=== PATIENT | male | born 1960 | race Caucasian/White ===

== ENCOUNTER 2018-12-04 05:21 | Inpatient (IN) | payer OTHER, SELFPAY ==
--- NOTE | 2018-11-28 15:02 | HP.PCM_ITS ---
History and Physical Date of Admission: 12/04/18 HISTORY AND PHYSICAL - COLON RESECTION FOR?CECAL SESSILE MASS, LIKELY COLON CANCER ? Alex Carpenter 1960 November 28, 2018 ? REFERRING PHYSICIAN: ??Reginaldo Tejada MD ? CHIEF COMPLAINT:??Anemia ? HPI: The patient is a 57 year old male with a finding of anemia. ?The patient had no real complaints but went to donate blood and was found to be anemic. ?He was referred to Dr. Reginaldo Tejada. ?The patient underwent colonoscopy and upper endoscopy on November 20, 2018 which demonstrated 2 smaller polyps and then a sessile polyp in the ascending colon cecal region this was biopsied and was felt to be unresectable. ?Dr. Tejada contacted me and felt this was likely going to return as a superficial carcinoma but in the event required surgical intervention. ??Pathology from [facility] is currently pending. ? The patient is being seen by me today at the request of ?for my opinion and advice regarding unresectable polyp/carcinoma of the right colon. ? PAST MEDICAL HISTORY PAST MEDICAL HISTORY Diagnosis Date ? Anemia ? ? ? PAST SURGICAL HISTORY PAST SURGICAL HISTORY Procedure Laterality Date ? APPENDECTOMY ? ? ? COLONOSCOPY ? 11/20/2018 ? LAMINECTOMY,>2 SGMT,LUMBAR ? 2011 ? ? CURRENT MEDICATIONS ? Current Outpatient Medications: ferrous sulfate 325 mg (65 mg iron) tablet TAKE 1 TABLET BY MOUTH THREE TIMES A DAY EVERY OTHER DAY Disp: Rfl: 11 neomycin 500 mg tablet Take 2 tablets by mouth four times daily. 2 TABLETS AT 6, 8 ,AND 10 PM Disp: 6 tablet Rfl: 0 metroNIDAZOLE (FLAGYL) 500 mg tablet Take 1 tablet by mouth three times daily. 2 TABLETS AT 6, 8, AND 10 PM Disp: 6 tablet Rfl: 0 Sodium,Potassium,&Mag Sulfates (SUPREP BOWEL PREP KIT) 17.5-3.13-1.6 gram solr Take 1 Bottle by mouth one time only for 1 dose. Disp: 1 Bottle Rfl: 0 ? No current facility-administered medications for this visit.? ? ALLERGIES:?Demerol [Meperidine (Pf)] ? PERSONAL HISTORY:? SOCIAL HISTORY Social History ??Socioeconomic History ?Marital status: ?Spouse name: Not on file ?Number of children: Not on file ?Years of education: Not on file ?Highest education level: Not on file ??Social Needs ?Financial resource strain: Not on file ?Food insecurity - worry: Not on file ?Food insecurity - inability: Not on file ?Transportation needs - medical: Not on file ?Transportation needs - non-medical: Not on file ??Occupational History ?Not on file ??Tobacco Use ?Smoking status: Never Smoker ?Smokeless tobacco: Never Used ??Substance and Sexual Activity ?Alcohol use: Yes ?Drug use: Not on file ?Sexual activity: Not on file ??Other Topics ?Concerns: ?Not on file ??Social History Narrative ?Not on file ? FAMILY HISTORY:? FAMILY HISTORY FAMILY HISTORY Problem Relation Age of Onset ? DVT Father ? ? COPD Mother ? ? REVIEW OF SYMPTOMS: ??The review of systems data was entered by the nurse and reviewed by me ? Nursing Notes: Marvel Rand ?11/28/2018 ?1:34 PM ?Signed REVIEW OF SYSTEMS: ?General:???The patient denies fatigue, denies weight loss, denies weight gain, denies feeling hot, and denies feelings of cold. ?Eyes: ?The patient denies glaucoma, denies eye injury/surgery, does not wear glasses or contacts. ?Ear/Nose/Throat: ?The patient denies allergies, denies hayfever, denies ear infections, and denies bloody noses. ?Cardiovascular: ?The patient denies chest pain, denies heart disease, denies high blood pressure,denies cardiac stent, denies prior heart attack, denies irregular heart beat, denies high cholesterol, ?denies poor circulation, denies heart failure, other cardiac issues, denies claudication, denies cold feet, denies peripheral arterial stent. ?Respiratory: ?The patient denies tuberculosis, denies pneumonia, denies frequent cough, denies pulmonary embolism, denies shortness of breath, and denies coughing up blood. ?Gastrointestinal: ?The patient denies difficulty swallowing, denies acid reflux, denies ulcers, denies vomiting, denies jaundice/hepatitis, denies gallbladder problems, denies black or tarry stools, denies hemorrhoids, denies bleeding from rectum, denies diverticulitis, denies constipation, denies d iarrhea, denies loss of stool control, and denies hernias. ?Kidney/Bladder: ?The patient denies kidney stones, denies urine infections, and denies bloody urine. ?Skin: ?The patient denies a history of skin cancer, denies bleeding/changing moles, and denies a history of skin rash. ?Neurologic: ?The patient denies a history of epilepsy/convulsions, denies headaches, denies head/spinal injuries, and denies stroke/TIA. ?Psychiatric: ?The patient denies psychiatric medications, denies depression, and denies voices, denies substance abuse. ?Endocrine: ?The patient denies thyroid disorders, denies diabetes, and denies hormonal problems. ?Hematologic: ?The patient denies a history of bruising, denies bleeding, and denies anemia, denies blood clots. ?Infections: ?The patient denies a history of measles and mumps, denies rheumatic fever, and denies sexually transmitted diseases. ?Musculoskeletal: ?The patient NOTES back pain/injury, denies back problems, denies sciatica, denies knee/foot trouble, denies arthritis, or denies gout. ? ? When was patient's last Mammogram screening? N/A ? ?Last Colonoscopy: ? ? Marvel Rand ? PHYSICAL EXAMINATION: ? General: ?The patient is 57 year old male, well nourished, well hydrated in no acute distress. ?The patient is oriented to time, place, and person. ? VITALS:?BP 162/78 ? Pulse 64 ? Resp 22 ? Ht 180.3 cm (5' 11) ? Wt 116.1 kg (256 lb) ? BMI 35.70 kg/m? ?Body mass index is 35.7 kg/m?.? ? HEENT: ?Normal cephalic, ataumatic, pupils are equally round, sclera are anicteric, mucous membranes are moist, oropharynx is clear. ?Neck has no masses, asymmetry or lymphadenopathy. ?Thyroid is unremarkable. ? Respiratory: ?Clear to auscultation and percussion. ?Normal respiratory excursion and pattern. ? Cardiac: ?Examination is regular rate and rhythm. ? Abdominal exam: ?Soft, nontender, ?with no palpable masses. ?No hepatosplenomegaly. ?No palpable hernias. ? Rectal exam: ?exam deferred ? Extremities: ?no clubbing, cyanosis or edema. ?No adenopathy. ? LABORATORY VALUES: As Noted ? RADIOLOGIC STUDIES: ?As Noted ? Assessment ? IMPRESSION: Cecal polyp versus cancer ? PLAN: ? We extensively discussed the diagnosis and discussed the surgical options. ??The patient has elected to undergo colon resection ? I plan to perform a?Laparoscopic colectomy partial right hemicolectomy- 70805- 142. ?The planned surgical procedure was discussed extensively with the patient. ?The risks, benefits, anticipated outcomes and possible complications and alternatives were discussed. ?My staff has also explained the procedure in understandable terms and the patient was given the option to take printed material concerning the planned procedure. ?The patient had the opportunity to ask questions concerning the planned procedure. ?The patient freely consents to the planned procedure. ?? ? I will plan for?outpatient bowel preparation including mechanical and antibiotic preparation including Neomycin and Flagyl 1gm each at 6,8, and 10pm the night before surgery. ? Anticipated Surgical Procedure/ CPT Code:?Laparoscopic colectomy partial right hemicolectomy- 15947-474 ? Anticipated Anesthetic:?General ? Patient weight:??Blood pressure 162/78, pulse 64, resp. rate 22, height 180.3 cm (5' 11), weight 116.1 kg (256 lb).?BMI: ?Body mass index is 35.7 kg/m?. ? Planned antibiotic:?Cefotetan?2gm IVPB juvenile correctional officer to OR ? SCDs needed -?Yes ? Associate Veterinarian Needed -?Yes ?? ? Diagnoses:?(D12.6) Adenomatous polyp of colon, unspecified part of colon ?(primary encounter diagnosis) (C18.2) Colon cancer, ascending (HCC) ? My findings have been communicated to ?via shared medical record. ?This note will be forwarded to Dr. Jigar Cook MD. ? Return to Clinic: The patient is instructed to follow-up with me?1 week post operatively. ?
[2018-12-01 08:12] VITALS: BP 145/84; PULSE 63; RESP 16; TEMP 36.7; O2SAT 96; BMI 35.6
--- NOTE | 2018-12-01 08:46 | SDCEKG_ITS ---
Test Reason : Blood Pressure : / mmHG Vent. Rate : 060 BPM Atrial Rate : 060 BPM P-R Int : 184 ms QRS Dur : 102 ms QT Int : 414 ms P-R-T Axes : 059 079 061 degrees QTc Int : 414 ms Normal sinus rhythm Normal ECG Confirmed by SHRUTHI GUTIÉRREZ, NUZHAT ([id number]), newspaper photo editor ARAVIND MCBRIDE ([id number]) on 12/04/2018 10:36:07 AM Referred By: Luis Andrade Confirmed By:NUZHAT HAWKINS MD
[2018-12-01 09:43] LABS: Absolute Lymphocyte Count 1.23 X10^3/ul (0.83-4.51); Absolute Neutrophil Count 6.2 X10^3/uL (2.0-7.7); Basophil# 0.04 X10^3/uL; Basophil% 0.4 % (0-1); Eosinophil# 0.47 X10^3/uL; Eosinophils% 5.1 % (0-5); Hematocrit 33.3 % (40-54); Hemoglobin 9.8 g/dl (13.0-16.5); Lymphocyte # 1.23 X10^3/ul (4.0); Lymphocyte % 13.5 % (19-41); Mean Corp Hgb Conc 29.4 g/gl (32-36); Mean Corpuscular Hgb 23.6 pg (27.0-32.0); Mean Corpuscular Volume 80.2 fL (80-94); Mean Platelet Vol. 8.8 fl (6.2-12.0); Neutrophil # 6.21 X10^3/uL (2.7-7.7); Neutrophil % 68.1 % (47-70); POSITIVE COUNT NO; POSITIVE DIFFERENTIAL NO; POSITIVE MORPHOLOGY NO; Platelet Count 350 K/mm3 (150-450); RBC Distribution Width CV 16.2 % (11.6-14.6); RBC Distribution Width SD 47.3 fl (35.1-43.9); Red Blood Count 4.15 M/mm3 (4.6-6.2); White Blood Count 9.1 K/mm3 (4.4-11.0)
[2018-12-01 10:00] LABS: Iron 24 ug/dL (65-175)
[2018-12-04] VITALS (13 sets, daily range): BP systolic 93–133; BP diastolic 53–78; PULSE 47–68; RESP 14–18; TEMP 36.4–37.1; O2SAT 92–100; BMI 35.6
--- NOTE | 2018-12-04 | COL._PTH ---
PATIENT: RADHA LEVIN LOC: MS2 U#:[id number] AGE/SX: 57/M [place] [facility] [place] RE12/04/[address]: Dr. Luis Andrade MD : 1960 BED: 1 DIS: 12/06/2018 SPEC #: [id number] RECD: 12/04/18 14:19 STATUS: ROSALIND REAyden #: [id number] MIKHAIL: 12/04/18 00:[address]: Luis Andrade DEPT: SURGICAL PATHOLOGY RECD BY: Everette Maki ENTERED: 12/04/18 14:19 SP TYPE: COLON OTHR DR: Elzbieta Montejo, OUTPATIENT SERVICES DIRECTOR-C Tissues: Colon, NOS Procedures: Surgery Specimen Level HEADER OPERATION: ERAS, laparoscopic hemicolectomy PRE-OP DIAGNOSIS: Colon cancer TISSUE SUBMITTED: Right colon MICROSCOPIC DIAGNOSIS Right colon, right hemicolectomy: Invasive adenocarcinoma. See cancer checklist below. AM:franchesca 12/08/18 COMMENT COLON CANCER SUMMARY: Specimen - right colon Procedure - right hemicolectomy Tumor site - cecum Tumor size - 10.5 x 8 x 1.6 cm Macroscopic tumor perforation - not identified Histologic type - adenocarcinoma Histologic grade - high grade (moderate to poorly differentiated) Microscopic tumor extension - tumor invades through muscularis propria into subserosal adipose tissue. Margins: Proximal margin - free of carcinoma Distal margin - free of carcinoma Circumferential margin - free of carcinoma Closest tumor margin - distal margin (9.5 cm) Treatment effect - unknown Lymph-Vascular invasion - not identified Perineural invasion - not identified Tumor deposits - not identified Lymph nodes: Number of lymph nodes examined - 27 Number of lymph nodes involved - 1 Additional pathologic findings - tumor adenomas (2) Ancillary studies: Reported separately. See microsatellite instability study by IHC ([id number]) for complete details. PATHOLOGIC STAGE: pT3 N1a Mx The above summary is in compliance with College of [employer] (CAP) Cancer Protocols Checklist and [place] Joint Committee on Cancer (AJCC), Staging Manual, 8th Ed. Case has been reviewed in consultation with Dr. Nair who concurs with the above diagnosis. IDC:SJ MICROSCOPIC DESCRIPTION Slides are reviewed. GROSS DESCRIPTION Received in fixative is one container labeled with the patient's name and designated right colon. The specimen consists of a 15 cm segment of large bowel with attached 12.5 cm segment of small bowel. An appendix is not present. In the middle of the cecum and involving the ileocecal valve is a firm, jalloh-white apple-core lesion involving 100% of the circumference of the bowel and measuring 10.5 x 8 x 1.6 cm. The mass is located 9.5 cm from the closest (distal) margin of resection and 10 cm from the proximal margin of resection. The serosa in the area of mass is inked in blue ink. No gross perforation is identified. The pericolic soft tissue contains a number of nodules resembling lymph nodes. Also present free in the container are four irregular fragments of jalloh mucosa ranging in size from 2 to 2.5 cm. Located 5 cm and 8 cm distal to the mass are two jalloh-pink polyps ranging in size from 0.5 to 0.4 cm. Serial sections of the mass reveal extension of mass through the bowel wall. The serosa in area of mass is inked in blue ink. Sections are submitted as follows: 1 - proximal and distal mucosal margins, 2??help desk representative section of fragments of bowel free in container, 3 - mucosal polyps (most proximal inked), 48 - tumor, 9 - multiple lymph nodes, 10 - one lymph node, 11??one lymph node, 12 - one lymph node sectioned, 13??one lymph node, 14 - multiple lymph nodes, 15 - one lymph node, sectioned, 16 - one lymph node serially sectioned, 17 - one lymph node sectioned, 18 - one lymph node sectioned, 19 - one lymph node sectioned, 20 - one lymph node bisected, 21 - one lymph node bisected, 22??multiple lymph nodes. / AM:franchesca 12/05/18 TC:0 CPT: 10715
--- NOTE | 2018-12-04 | IMM_PTH ---
PATIENT: RADHA LEVIN LOC: MS2 U#:[id number] AGE/SX: 57/M [place] [facility] [place] RE12/04/[address]: Dr. Luis Andrade MD : 1960 BED: 1 DIS: 12/06/2018 SPEC #: [id number] RECD: 12/08/18 10:37 STATUS: ROSALIND REQ #: [id number] MIKHAIL: 12/04/18 00:[address]: Luis Andrade DEPT: IMMUNOHISTOCHEMISTRY RECD BY: Jeri Sampson ENTERED: 12/08/18 10:38 SP TYPE: IMMUNO OTHR DR: Elzbieta Montejo, AUTO DEALERSHIP PORTER-C Tissues: Right colon Procedures: MSH2 (add) MLH-1 (add) MSH6 (add) Anti-PMS2 (add) NUNO-2 (add) HER2 NAVNEET (add) P53 (add) KI-67 (initial) PHYSICIAN & INSTITUTION [place] [id number] SPECIMEN INFORMATION: Tissue Source: Right colon Clinical Info: Colon cancer Specimen Number: [id number] #7 CPT code: 59045, 59562 x7 METHODOLOGY: Deparaffinized sections of prefer/formalin-fixed tissue or PAP/DQ stained slides are incubated with monoclonal/polyclonal antibodies/oligonucleotide probes. Localization is made via biotin free immunoperoxidase method. Appropriate controls are performed and reacted as expected. Results on target cell population are indicated in the following table: RESULTS: ANTIBODY / CLONE RESULT Block 7 Ki-67 (30-9) positive, high P53 (DO-7) positive, 2% NUNO-2 (SP21) positive MLH-1 (M1) negative MSH2 (25D12) positive MSH6 (44) positive PMS2 (ECR1090) negative Her-2neu (CB11) negative These tests were developed and their performance characteristics determined by [facility]. They may not have been cleared or approved by the U.S. Food and Drug Administration. The FDA has determined that such clearance or approval is not necessary. INTERPRETATION: Right colon, hemicolectomy: Invasive adenocarcinoma. Result of Microsatellite Instability Study: Positive (loss of mismatch protein; microsatellite instability detected). Complete loss of MLH1 and PMS2. SJ:franchesca 12/12/18 Case has been reviewed in consultation with Dr. Natarajan who concurs with the above diagnosis. IDC:AM
[2018-12-04] MEDS: Gabapentin 600 MG Tablet PO (06:11)
[2018-12-04] MEDS: Acetaminophen 500 MG Tablet 1000 MG PO ×3 (06:11→23:21)
[2018-12-04 06:25] LABS: Bedside Glucose 78 mg/dL (70-110)
[2018-12-04] MEDS: Lactated Ringers 1,000 ML 40 ML IV (06:27)
[2018-12-04] MEDS: Magnesium Sulfate 4gm/100mL 4 GM/100 ML IV.SOLN. IV (06:28)
[2018-12-04] MEDS: BUPIVACAINE LIPOSOME/PF 20 ML VIAL OPERA.SITE (10:53)
[2018-12-04] MEDS: Bupivacaine 0.25% 30 ML Vial (10:53)
--- NOTE | 2018-12-04 11:04 | PCM.OPRPT ---
Report of Operation Date of Procedure: 12/04/18 Pre-Operative Diagnosis: right colon cancer Post-Operative Diagnosis: bulky right colon cancer Surgery/Procedure Performed:: laparoscopic right hemicolectomy outdoor adventure guides: Keri Verma Type of Anesthesia:: General Anesthesiologist: Jerman Rich - ASA2 Specimen's removed: right colon Drains: none Estimated Blood Loss (mL): 100 Fluids Replaced: 2000 Description of Procedure: The patient was brought to the operating suite. Sign in was performed verifying patient, site, procedure, position, and DVT prophylaxis with SCDs. Patient 2 g of cefotetan. Preoperative bowel prep of mechanical and antibiotic comprised of GoLYTELY and then neomycin and Flagyl 1 g 3 doses evening before was given Following induction of general anesthetic. The patient?s abdomen was prepped and draped in the usual fashion. Timeout was performed verifying patient, site, position. Local anesthetic was injected above the level of the umbilicus. Incision made and dissection carried down to the fascia. 2 stay sutures were placed. Incision made in the fascia, the peritoneum entered under direct visualization. A 10 mm Smith trocar was inserted and secured with the stay sutures. Pneumoperitoneum to 15 mmHg was insufflated. Visual inspection revealed adhesions of a loop of small bowel and omentum to the anterior abdominal wall and also then omentum adherent to this loop of small bowel. There was also found to be a big bulky tumor in the cecum. The liver and other visualized abdominal structures appeared unremarkable. 2 5mm ports were placed in the standard midline position. a third 5 mm port was placed in the low midline later. Mobilization the avascular plane was undertaken from the base of the cecum up and around the hepatic flexure. Division of the lesser sac from the midline to the hepatic flexure was undertaken. When this was fully mobilized. The duodenum was visualized from the right flank region. Next, the terminal ileum area was brought up and a cleavage point noted in the mesentery. Harmonic Scalpel was used to create a window in the terminal ileal mesentery with an additional length of terminal ileal mesentery taken given the size of the cecal mass and division was taken down to the ileocolic root. Next the transverse colon was grasped and the vasculature coming from the middle colic vessel was identified. A window was made in the bare area proximal to the middle colic vessels just overlying the duodenal sweep. This was also fully divided. Dissection was then carried out at the ileal colic vessel root. The artery and vein were identified and doubly clipped proximally and doubly clipped distally with Hem-o-geovani clips. With full dissection of the mesentery and full mobilization the colon, the supraumbilical incision was extended and a wound protector placed. The terminal ileum and cecum ascending colon part of the transverse colon were delivered through the wound protector. Complete division of the mesentery to the bowel was undertaken at both sites. The bowel was transected with an intestinal load echelon stapler. On this a functional stapled end-to-end anastomosis was performed between the ileum and transverse colon with an echelon stapler. The staple line was checked for hemostasis and following this the anastomosis closed with a TA stapler creating a wide triangle opening that was easily palpable. A 3-0 silk suture was used to take tension off the apex of the staple line and Betadine painted on the TA staple line. At this point, the specimen was opened on the back table. There was noted to be tumor in the expected location. Gown and gloves were changed. The site had clean towels placed and New instruments were used for fascial closure. The umbilical fascial defect was closed with a running 0 PDS suture. Penumoperitenum was reestablished. There was good anatomic positioning of the small bowel. There was good hemostasis along the incisions. A lateral rectus abdominus block was performed with Exparal diluted with bupivacaine to 50cc total volume. Additional mixture was injected in the 5mm port sites and lasts some saved for the skin injection Pneumoperitoneum was reestablished. The 5mm ports were removed under direct visualization with no signs of bleeding. Pneumoperitoneum was released. Subcutaneous fat reapproximated with interrupted 3-0 Vicryl sutures. Skin was closed with interrupted 4-0 Monocryl subcuticular sutures. Exparal diluted with bupivacaine was injected into the skin. Steri-Strips and bandages were applied. The patient was brought to recovery room in stable condition. - Admit VTE Documentation VTE Present on Admission: No VTE Mechan Device Prophylaxis: SCD's VTE Pharm Prophylaxis ordered?: Yes
[2018-12-04 12:01] LABS: Carcinoembryonic Antigen 1.5 ng/mL (0.0-4.7)
[2018-12-04] MEDS: Ketorolac 15 MG/ML Vial IV ×3 (13:47→23:22)
--- NOTE | 2018-12-04 15:19 | CASEMGMT ---
RN RASHEED AUTOMOBILE WRECKER CM to room to meet with patient for initial transition planning/care coordination assessment. RN RASHEED introduced self and role at [facility]. Pt voices understanding and consents to assessment at this time. Pt resting in bed in no distress at this time. Pt is A/O at this time and answers all questions appropriately. Care providers, pharmacy, and demographics verified/updated at this time. PCP: Elzbieta Montejo Specialists: Denies Preferred Pharmacy: [facility] Retail Insurance: [employer] Prescription Benefit: Yes Living Will/HPOA: Pt does not currently have LW/HCPOA and declines info at this time. Pt made aware that he can contact as an out-pt and make appt in the future if he decides he would like to talk with someone about this or would like to utilize [facility] social work for advanced directive completion. LNOK: , son Living Arrangements: Lives with and son who is in college in 2-story home. Denies difficulty w/stairs. Independent. Transportation: Pt states drives self and states no transportation concerns at this time. DME: CPAP that he got thru [facility]. States he is pretty sure he transferred over to [place]. HHC/SNF: No history of either. Denies needs and no needs identified. Pt wishes to return home and states has no concerns with going home at time of discharge. Pt states does not smoke or drink ETOH. CM to follow for any discharge planning/needs. Pt voices no further concerns/needs at this time. Advised pt to ask for CM if any further questions/concerns/needs arise. Voices understanding. PLAN: Home Sharlene POPE RN, CM
[2018-12-04] MEDS: Ensure Clear 120 ML Liquid PO ×2 (19:05→21:05)
[2018-12-04] MEDS: Docusate Sodium 100 MG Capsule PO (21:05)
[2018-12-04] MEDS: 0.9% NaCl Peripheral Flush Adult/Peds IV (23:22)
[2018-12-05] MEDS: Lactated Ringers 1,000 ML 40 ML IV (01:58)
[2018-12-05 05:29] VITALS: BP 121/84; PULSE 64; RESP 16; TEMP 36.6; O2SAT 97
[2018-12-05] MEDS: Ketorolac 15 MG/ML Vial IV ×3 (05:37→18:45)
[2018-12-05] MEDS: Acetaminophen 500 MG Tablet 1000 MG PO ×4 (05:37→23:39)
[2018-12-05] MEDS: 0.9% NaCl Peripheral Flush Adult/Peds IV ×3 (05:38→23:39)
[2018-12-05 06:02] LABS: Hematocrit 30.2 % (40-54); Hemoglobin 8.8 g/dl (13.0-16.5); Mean Corp Hgb Conc 29.1 g/gl (32-36); Mean Corpuscular Hgb 23.2 pg (27.0-32.0); Mean Corpuscular Volume 79.7 fL (80-94); Mean Platelet Vol. 8.7 fl (6.2-12.0); Platelet Count 295 K/mm3 (150-450); RBC Distribution Width CV 16.1 % (11.6-14.6); RBC Distribution Width SD 47.3 fl (35.1-43.9); Red Blood Count 3.79 M/mm3 (4.6-6.2); White Blood Count 9.9 K/mm3 (4.4-11.0)
[2018-12-05 06:08] LABS: Scan Indicated on CBC? Y/N NO
[2018-12-05 06:43] LABS: Anion Gap 4 (5-15); BUN 9 mg/dL (7-18); BUN/Creat Ratio 15.5 RATIO (10-20); Calcium,Total 7.8 mg/dL (8.5-10.1); Chloride 112 mmol/L (98-107); Creatinine, Serum 0.58 mg/dL (0.70-1.30); EST Glomerular Filtration Rate 153 mL/min (>60); Est Glom Filt Rate - Afr Amer 185 mL/min (>60); Estimated Creatinine Clearance 151.47 ml/min; Glucose 103 mg/dL (74-106); Potassium 3.9 mmol/L (3.5-5.1); Sodium Level 142 mmol/L (136-145)
[2018-12-05 08:35] VITALS: PULSE 60
[2018-12-05 08:36] VITALS: BP 131/84; PULSE 60; RESP 18; TEMP 37.1; O2SAT 95
[2018-12-05] MEDS: Docusate Sodium 100 MG Capsule PO ×2 (10:54→21:35)
[2018-12-05] MEDS: Enoxaparin 40 MG/0.4 ML Syringe SC (10:54)
[2018-12-05 14:57] VITALS: BP 128/76; PULSE 55; RESP 18; TEMP 36.9; O2SAT 97
[2018-12-05] MEDS: Ensure Clear 120 ML Liquid PO (14:57)
--- NOTE | 2018-12-05 18:02 | PN.SURG_ITS ---
Subjective: minimal abdominal pain, had bowel movement and flatus this afternoon - Physical Exam General: Alert, Oriented x3, Cooperative Lungs: Clear to auscultation, Normal air movement Cardiovascular: Regular rate, No murmurs Abdomen: Bowel Sounds Present, Soft, Non Tender Vital Signs Temp Pulse Resp BP Pulse Ox 98.4 F 55 L 18 128/76 H 97 12/05/18 14:57 12/05/18 14:57 12/05/18 14:57 12/05/18 14:57 12/05/18 14:57 Oxygen Flow Rate (L/min) 6 Oxygen Delivery Method Room Air Weight: 115.9 kg Body Mass Index (BMI) 35.6 Intake and Output for Last 24 Hours 12/03/18 12/04/18 12/05/18 23:59 23:59 23:59 Intake Total 3911 / 3911 1526 / 1526 Balance 3911 / 3911 1526 / 1526 Laboratory Tests Past 24 Hrs 12/05/18 12/05/18 05:35 05:35 WBC 9.9 RBC 3.79 L Hgb 8.8 L Hct 30.2 L MCV 79.7 L MCH 23.2 L MCHC 29.1 L RDW 16.1 H RDW Differential 47.3 H Plt Count 295 MPV 8.7 Sodium 142 Potassium 3.9 Chloride 112 H Carbon Dioxide 26.0 Anion Gap 4 L BUN 9 Creatinine 0.58 L Estim Creat Clear Calc 151.47 Est GFR (MDRD) Af Amer 185 Est GFR (MDRD) Non-Af 153 BUN/Creatinine Ratio 15.5 Glucose 103 Calcium 7.8 L Medical Necessity - Tobacco Use Smoking Status: Never smoker Assessment/Plan POD # 1 s/p laparoscopic right hemicolectomy for bulky colon cancer. Patient currently on EUS protocol. Tolerating liquids. Good bowel sounds are early morning babysitter rounds, no nurse call stating the patient has small bowel movement and flatus. Will advance to low residue diet. Tolerating oral pain medicine nonnarcotic. Rectus block working well. Patient walking multiple times in the hallway. Also encourage incentive spirometry
--- NOTE | 2018-12-05 21:01 | NURSING ---
walking in bos[place]. gait steady
[2018-12-05 21:15] VITALS: BP 144/90; PULSE 62; RESP 16; TEMP 37.1; O2SAT 97
[2018-12-05 23:37] VITALS: BP 126/76; PULSE 62; RESP 16; TEMP 36.9; O2SAT 98
[2018-12-06 05:27] VITALS: BP 143/78; PULSE 66; RESP 14; TEMP 36.7; O2SAT 95
[2018-12-06] MEDS: Acetaminophen 500 MG Tablet 1000 MG PO (05:38)
--- NOTE | 2018-12-06 06:48 | DCINST_ITS ---
Discharge Diet: Light diet - advance as tolerated Discharge Activity: Return to Normal Activity, May Shower Lifting Restrictions: 20 pounds Call your doctor if your incision/area has: Continuous Slow Oozing, Sudden Increased Bleeding, Increased Pain/ Swelling, Increased Redness, Foul Smelling Discharge Call your doctor if you observe: Fever of 101 or Higher Allergies/Adverse Reactions: Allergies meperidine [From Demerol] Allergy (Verified 12/01/18 08:10) Other HIGH FEVER Medications to take at Discharge Ferrous Sulfate [Iron] 325 mg PO TID 12/01/18 Acetaminophen [Tylenol] 1,000 mg PO Q6 tablet 12/06/18 Primary Care Physician: Elzbieta Montejo NP-C [Primary Care Provider] - Test Results: Test results from this visit will be discussed in further detail at your follow- up appointment, if applicable. Please Follow Up With: Luis Andrade MD - [phone] When: Tuesday
[2018-12-06 07:00] VITALS: O2SAT 95
--- NOTE | 2018-12-06 09:05 | PCM.DC.SUM ---
Discharge Date and Diagnosis Date of Admission: 12/04/18 Date of Discharge: 12/06/18 - Primary Discharge Diagnosis right colon cancer Hospital Course and Treatment Operations: colectomy - laparoscopic right hemicolectomy Summary of Care Provided: The patient is a 57 year old M with a finding of anemia. He was found to have a cecal colon cancer by Dr. Tejada. He was admitted and underwent a laparoscopic right hemicolectomy with a finding of a bulky tumor with signs of metastasis. He was ready for discharge on POD # 2 - Physical Exam General: Alert, Oriented x3, Cooperative Lungs: Clear to auscultation, Normal air movement Cardiovascular: Regular rate, No murmurs Abdomen: Bowel Sounds Present, Soft, Non Tender Vital Signs Temp Pulse Resp BP Pulse Ox 98.1 F 66 14 143/78 H 95 12/06/18 05:27 12/06/18 05:27 12/06/18 05:27 12/06/18 05:27 12/06/18 07:00 Oxygen Flow Rate (L/min) 6 Oxygen Delivery Method Room Air Weight: 115.9 kg Body Mass Index (BMI) 35.6 Intake and Output for Last 24 Hours 12/04/18 12/05/18 12/06/18 23:59 23:59 23:59 Intake Total 3911 / 3911 2792 / 2792 450 / 450 Balance 3911 / 3911 2792 / 2792 450 / 450 Discharge Diet: Light diet - advance as tolerated Discharge Activity: Return to Normal Activity, May Shower Call your doctor if your incision/area has: Continuous Slow Oozing, Sudden Increased Bleeding, Increased Pain/ Swelling, Increased Redness, Foul Smelling Discharge Call your doctor if you observe: Fever of 101 or Higher Home Medications: Medications to take at Discharge Ferrous Sulfate [Iron] 325 mg PO TID 12/01/18 Acetaminophen [Tylenol] 1,000 mg PO Q6 tablet 12/06/18 Primary Care Physician: Elzbieta Montejo NP-C [Primary Care Provider] - Please Follow Up With: Luis Andrade MD - [phone] When: Tuesday Medical Necessity - Tobacco Use Smoking Status: Never smoker Meaningful Use Info Meaningful Use Diagnoses (Choose all that apply): None applicable
== END 2018-12-06 08:45 | disposition home or self-care (01) | DRG 330 ==
LOC: ACINP 05:23 → MS3 06:15 → MS2 08:15
PROVIDERS: Admitting Provider Surgery; Family Provider Nurse Practitioner Primary Care; PCP Nurse Practitioner Primary Care; Referring Provider Surgery; Visit Provider Surgery
PROC: 0DTF4ZZ Resection of Right Large Intestine, Percutaneous Endoscopic Approach (ICD-10-PCS; CPT 44205; principal; 2018-12-04 06:55)
DX: C18.0 Malignant neoplasm of cecum (principal); C79.9 Secondary malignant neoplasm of unspecified site; D64.9 Anemia, unspecified
CPT/HCPCS: 36415; 80048; 82378; 82962; 83540; 85025; 85027; 88309; 88341; 88342; 93005; 94762; J7050; J7120; A4216; J2405

== ENCOUNTER 2018-12-28 10:28 | Day surgery (SDC) | payer OTHER, SELFPAY ==
[2018-12-21 14:23] VITALS: BMI 34.8
--- NOTE | 2018-12-26 17:29 | HP.PCM_ITS ---
History and Physical Date of Admission: 12/28/18 HISTORY AND PHYSICAL Alex Carpenter 1960 REFERRING PHYSICIAN: Chapin Last DO CHIEF COMPLAINT: Consult (Consult Port placement) HPI: Alex is a patient I am following for a ascending colon colon cancer.?? ? The patient is a 57 year old male with a finding of anemia. ?The patient had no real complaints but went to donate blood and was found to be anemic. ?He was referred to Dr. Reginaldo Tejada. ?The patient underwent colonoscopy and upper endoscopy on November 20, 2018 which demonstrated 2 smaller polyps and then a sessile polyp in the ascending colon cecal region this was biopsied and was felt to be unresectable. ?Dr. Tejada contacted me and felt this was likely going to return as a superficial carcinoma but in the event required surgical intervention. ??Pathology from [facility] is currently pending. ? The patient is being seen by me at the request of Dr. Tejada for my opinion and advice regarding unresectable polyp/carcinoma of the right colon.? ? I performed a?laparoscopic right hemicolectomy?on December 04, 2018. ?The pathology demonstrated: ? MICROSCOPIC DIAGNOSIS Right colon, right hemicolectomy: ?Invasive adenocarcinoma. ?See cancer checklist below. ? AM:rg ?12/08/18 ? COMMENT COLON CANCER SUMMARY: ??Specimen ? right colon ??Procedure ? right hemicolectomy ??Tumor site - cecum ??Tumor size ? 10.5 x 8 x 1.6 cm ??Macroscopic tumor perforation ? not identified ??Histologic type - adenocarcinoma ??Histologic grade ? high grade (moderate to poorly differentiated) ??Microscopic tumor extension ? tumor invades through muscularis propria into subserosal adipose tissue. ???Margins: ?Proximal margin ? free of carcinoma ?Distal margin ? free of carcinoma ?Circumferential margin ? free of carcinoma ?Closest tumor margin ? distal margin (9.5 cm) ??Treatment effect - unknown ??Lymph-Vascular invasion ? not identified ??Perineural invasion ? not identified ??Tumor deposits ? not identified ??Lymph nodes: ?Number of lymph nodes examined - 27 ?Number of lymph nodes involved - 1 ??Additional pathologic findings ? tumor adenomas (2) ??Ancillary studies: ?Reported separately. ?See microsatellite instability study by IHC ([id number]) for complete details. ? ??PATHOLOGIC STAGE: ?pT3 ?N1a ?Mx ? Alex notes no complaints. ?Post operative pain has been well?controlled. ?The patient denies?nausea. ?The patient`s appetite has been good. ? Alex is currently scheduled to undergo chemotherapy and needs vascular access for treatment. The patient denies a prior history of central venous access. PAST MEDICAL HISTORY Diagnosis Date ? Anemia PAST SURGICAL HISTORY Procedure Laterality Date ? APPENDECTOMY ? COLONOSCOPY 11/20/2018 ? LAMINECTOMY,>2 SGMT,LUMBAR 2011 ? PART REMOVAL COLON W ANASTOMOSIS 12/04/2018 Hemicolectomy,RIGHT ? SHOULDER ARTHROSCOPY/SURGERY 1987 Current Outpatient Medications: hydrOXYzine HCl (ATARAX) 50 mg tablet Take 50 mg by mouth three times daily as needed. Disp: Rfl: 1 triamcinolone acetonide (KENALOG) 0.1 % cream APPLY TWICE A DAY TO RASH ON CHEST Disp: Rfl: 0 ferrous sulfate 325 mg (65 mg iron) tablet TAKE 1 TABLET BY MOUTH THREE TIMES A DAY EVERY OTHER DAY Disp: Rfl: 11 neomycin 500 mg tablet Take 2 tablets by mouth four times daily. 2 TABLETS AT 6, 8 ,AND 10 PM (Patient not taking: Reported on 12/12/2018 ) Disp: 6 tablet Rfl: 0 metroNIDAZOLE (FLAGYL) 500 mg tablet Take 1 tablet by mouth three times daily. 2 TABLETS AT 6, 8, AND 10 PM (Patient not taking: Reported on 12/12/2018 ) Disp: 6 tablet Rfl: 0 No current facility-administered medications for this visit. ALLERGIES: Demerol [Meperidine (Pf)]; Meperidine PERSONAL HISTORY: Social History Socioeconomic History Marital status: Spouse name: Not on file Number of children: Not on file Years of education: Not on file Highest education level: Not on file Social Needs Financial resource strain: Not on file Food insecurity - worry: Not on file Food insecurity - inability: Not on file Transportation needs - medical: Not on file Transportation needs - non-medical: Not on file Occupational History Not on file Tobacco Use Smoking status: Never Smoker Smokeless tobacco: Never Used Substance and Sexual Activity Alcohol use: Yes Frequency: Monthly or less Drug use: Never Sexual activity: Yes Other Topics Concerns: Not on file Social History Narrative Not on file FAMILY HISTORY: FAMILY HISTORY Problem Relation Age of Onset ? DVT Father ? COPD Mother REVIEW OF SYMPTOMS: The review of systems data was entered by the nurse and reviewed by me There are no exam notes on file for this visit. PHYSICAL EXAMINATION: General: The patient is 58 year old male, well nourished, well hydrated in no acute distress. The patient is oriented to time, place, and person. VITALS: There were no vitals taken for this visit. There is no height or weight on file to calculate BMI. HEENT: Normal cephalic, ataumatic, pupils are equally round, sclera are anicteric, mucous membranes are moist, oropharynx is clear. Neck has no masses, asymmetry or lymphadenopathy. Thyroid is unremarkable. Respiratory: Clear to auscultation and percussion. Normal respiratory excursion and pattern. Cardiac: Examination is regular rate and rhythm. Abdominal exam: Soft, nontender, with no palpable masses. No hepatosplenomegaly. No palpable hernias. Rectal exam: exam deferred Extremities: no clubbing, cyanosis or edema. No adenopathy. Other: LABORATORY VALUES: As Noted RADIOLOGIC STUDIES: As Noted Assessment IMPRESSION: Colon cancer, need for IV access PLAN: I plan to perform a left sided port a cath placement. The planned surgical procedure was discussed extensively with the patient. The risks, benefits, anticipated outcomes and possible complications were mentioned. My staff has also explained the procedure in understandable terms and the patient was given the option to take printed material concerning the planned procedure. The patient had the opportunity to ask questions concerning the planned procedure. The patient freely consents to the planned procedure. Planned Procedure: left [facility]avian [facility] - 71302-103 and Fluoroscopic for vascular access - 97884-621-51 Patient Weight Last 1 Encounter Wt Readings: Date: Wt: 12/18/2018 113.4 kg (250 lb) Antibiotic: Ancef 2gm IVPB convolute tube winder to OR Planned Anesthetic: MAC with local I do not plan to access the port at the time of surgery. Diagnoses: (C18.2) Colon cancer, ascending (HCC) (primary encounter diagnosis) (D12.6) Adenomatous polyp of colon, unspecified part of colon Luis Andrade MD
[2018-12-28 11:07] VITALS: BP 128/69; PULSE 56; RESP 16; TEMP 36.9; O2SAT 100; BMI 34.0
[2018-12-28] MEDS: Cefazolin 2 GM in 0.9% Normal Saline 100 ML IV (12:10)
[2018-12-28] MEDS: Bupivacaine Mpf 0.5% 30 ML VIAL (12:32)
--- NOTE | 2018-12-28 12:55 | CHAPLAIN ---
Type of Pastoral Visit _x__ Initial Visit ___ Follow-up Visit ___ On-call Visit ___ General Patient Visit ___ Spiritual Assessment ___ Family Conference ___ Bereavement ___ Rapid Response ___ Code Blue ___ Other (describe below) Pastoral Care Referral From _x__ Patient ___ Family ___ Nurse ___ Physician ___ Venereal Disease Control Head ___ Overseer Kosher Kitchen ___ Other (describe below) Sacrament/Intervention _x__ Active listening ___ Anointing ___ Advent ___ Bereavement ___ Communion ___ Marilyn exploration ___ _x__ Life review _x__ Prayer ___ Reconciliation ___ Sacrament of Sick ___ Supportive presence ___ Wedding ___ Other (describe below) Pastoral Comments
--- NOTE | 2018-12-28 13:03 | DCINST_ITS ---
Discharge Diet: No Restrictions - Pain medication may cause nausea. You should typically eat light foods as you take your pain medication. Discharge Activity: Return to Normal Activity, May Shower - with the bandage in place 1-2 days after surgery. DO NOT SHOWER WHEN YOUR PORT IS ACCESSED. Additional Activity Instructions:: May not drive, work with heavy equipment, or sign legal documents for [address] if you are no longer taking narcotic pain medications. You may drive when you are no longer taking pain medications. Additional Dressing/Incision Instructions:: Leave the bandage on for 2-3 days. When you remove the bandage, leave the steri-strips intact until they fall off. Allergies/Adverse Reactions: Allergies meperidine [From Demerol] Allergy (Verified 12/27/18 14:09) Other HIGH FEVER Medications to take at Discharge Ferrous Sulfate [Iron] 775 mg PO QODAY 12/01/18 Oxycodone HCl/Acetaminophen [Percocet 5/325] 1 tab PO Q6H PRN PRN 6 Days #7 tab 12/28/18 The following prescriptions were given: Oxycodone HCl/Acetaminophen [Percocet 5/325] 1 tab PO Q6H PRN PRN 6 Days #7 tab PRN Reason: Pain Primary Care Physician: Elzbieta Montejo NP-C [Primary Care Provider] - Test Results: Test results from this visit will be discussed in further detail at your follow- up appointment, if applicable. Please Follow Up With: Luis Andrade MD - [phone] When: Please plan to follow up in 7 days in the office.
--- NOTE | 2018-12-28 13:03 | OP.PCM_ITS ---
Report of Operation Date of Procedure: 12/28/18 Pre-Operative Diagnosis: COLON CANCER Post-Operative Diagnosis: COLON CANCER Surgery/Procedure Performed:: LEFT SUBCLAVIAN PORTACATH WITH FLUOROSCOPY invasive cardiovascular technologist: None Type of Anesthesia:: Local MAC Anesthesiologist: Jerman Rich - asa2 Specimen's removed: NONE Estimated Blood Loss (mL): 1 Fluids Replaced: 800 Description of Procedure: The patient was brought to the operating suite. The left subclavian site was marked in the holding area and the patient concurred this was the planned operative site. Sign was performed verifying patient, site, position, skip antibiotic prophylaxis-2 g of Ancef and DVT prophylaxis with SCDs. Following IV sedation, the left neck and chest were prepped and draped in the usual fashion. Timeout was performed verifying patient, site, position. Local anesthetic was injected and a Seldinger needle was used to access the left subclavian vein without difficulty. Under fluoroscopic control, a guidewire was inserted and advanced the SVC RA region. Local anesthetic was injected and incision made and pocket created for the port site. Next the catheter was tunneled from the wire site incision to the port site incision. Under fluoroscopic control introducer sheath and dilator were inserted over the wire. The wire and dilator removed. The catheter was fed through the introducer suture sheath and adjusted to the SVC RA region. There was good return of venous blood and easy inflow of saline through the system. Fluoroscopy demonstrated good positioning of the catheter. Next the catheter was cut to length affixed to the port with the locking ring and secured in the pocket with 2-2-0 Prolene sutures. Subcutaneous fat closed with interrupted 3-0 Vicryl suture. Skin closed with 4-0 Biosyn interrupted and running subcuticular sutures. Fluoroscopy demonstrated good position of the system. The port was accessed. There was good return of venous blood. Inflow of saline was easy. The port was then flushed with 2-3 cc of 100 unit per heparin solution. A dressing was applied. The patient was brought to recovery room in stable condition. Grafts/Implants Used: POWER PORT - [id number] EXP - 10/13/2019
[2018-12-28 13:06] VITALS: BP 128/69; BP 130/86; PULSE 55; RESP 18; TEMP 36.4; O2SAT 97
[2018-12-28 13:11] VITALS: BP 128/69; BP 133/86; PULSE 50; RESP 18; TEMP 36.4; O2SAT 97
--- NOTE | 2018-12-28 13:15 | RAD_ITS ---
STUDY: X-RAY CHEST REASON FOR EXAM: Male, 58 years old. Line placement. TECHNIQUE: Single AP portable view of the chest. COMPARISON: None. FINDINGS: A left-sided robe catheter as been placed. The tip is at the junction of the superior vena cava and right atrium. Hyperinflation. There is no demonstrated pleural abnormality. There is mild cardiac enlargement. Normal mediastinum and olivia. Normal visualized pulmonary arteries. There is atherosclerotic tortuosity of the aortic arch and descending thoracic aorta. There are diffuse degenerative changes of the visualized thoracic spine. Normal visualized ribs, clavicles, and shoulders. There is no demonstrated abnormality of the visualized soft tissue structures of the upper abdomen. RAD/CXR for Line Placement IMPRESSION: The tip of the left-sided robe catheter is at the junction of the superior vena cava and right atrium. Hyperinflation. Electronically Signed: Tyler Asencio, at 13:33 EDT , Service support ,
[2018-12-28 13:50] VITALS: BP 128/69
== END 2018-12-28 14:10 | disposition home or self-care (01) ==
LOC: SDC 10:30 → AC 10:30
PROVIDERS: Family Provider Nurse Practitioner Primary Care; PCP Nurse Practitioner Primary Care; Referring Provider Surgery; Visit Provider Surgery
PROC: (CPT 36561; principal; 2018-12-28 11:45)
DX: C18.2 Malignant neoplasm of ascending colon (principal); D12.6 Benign neoplasm of colon, unspecified; D64.9 Anemia, unspecified; Z88.5 Allergy status to narcotic agent
CPT/HCPCS: 36561; 71045; 76000; J7120; C1788